=== PATIENT | male | born 1945 | race Caucasian/White ===

== ENCOUNTER → 2019-03-23 15:24 | Day surgery (SDC) | payer MEDICARE, SELFPAY ==
[2019-03-18 12:53] VITALS: BMI 40.4
--- NOTE | ~2019-03-23 | CT_ITS ---
EXAMINATION: CT chest abdomen w con DATE: 03/23/2019 09:47 INDICATION: Dysphagia. Difficulty swallowing. Weight loss. TECHNIQUE: Computed tomography (CT) of the chest and abdomen was performed with 100 cc Omnipaque 350 intravenous contrast. Automated exposure control and iterative reconstruction technique were employed . Exam dose: 1531.38 mGy-cm total exam DLP. COMPARISON: None FINDINGS: CHEST CT: The thyroid gland is unremarkable. There is prominent soft tissue thickening of the distal esophagus. There may be a small hiatal hernia . The esophageal thickening may extend into the proximal stomach. Esophageal and/or gastric neoplasm is suspected. There is an approximately 9 mm right distal paraesophageal lymph node. There is an approximately 9.8 mm distal left paraesophageal lymph node. Additional smaller paraesophageal lymph nodes are noted. There is an approximately 2.1 x 3.1 cm right paratracheal necrotic appearing lymph node. Superior mediastinal lymph nodes are noted, the largest approximately 10 x 14.9 mm, situated in the r ight superior mediastinum. Normal heart size. Coronary artery calcifications. No pericardial or pleural effusion. There is a calcified granuloma at the left lung base, left lower lobe. No pulmonary infiltrate or con solidation or pulmonary mass lesion is detected. Mild bilateral gynecomastia. ABDOMEN CT: There is mild perihepatic and right paracolic gutter ascites There is prominent upper abdominal lymphadenopathy along the proximal lesser curvature of the stomach and periaortic and more prominent aortocaval lymphadenopathy, with aortocaval lymph nodes measuring up to 16.5 x 27.7 mm and periaortic nodes measuring up to 10.5 x 25.6 mm. There is a 2.3 cm right adrenal mass. Normal left adrenal gland. There is very high density bile and/or stones in the gallbladder; consider gallbladder ultrasound cor relation. No bile duct or pancreatic duct dilatation. There is surface nodularity of the liver suggesting cirrhosis. No hepatic space-occupying mass lesion is evident. Normal splenic size. There is a solitary calcification of the proximal body of the pancreas, possibly mild chronic pancrea titis. No pancreatic mass lesion is evident. Bilateral small probable renal cysts. No renal calculus or hydroureteronephrosis. There is mild atherosclerotic calcification but no aneurysm of the abdominal aorta. Diffuse idiopathic skeletal hyperostosis of the thoracic spine. Transitional lumbosacral vertebra. Multilevel degenerative disc disease and prominent degenerative ch eric at the apophyseal joints of the lumbar spine. 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 Reviewed, dictated and finalized at [facility]. 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
[2019-03-23] MEDS: LACTATED RINGERS 1,000 ML 150 ML IV CONT (08:15)
[2019-03-23 08:29] LABS: Glucose Point of Care 167 (65-105)
--- NOTE | 2019-03-23 08:33 | ECG_ITS ---
Measurements Intervals [place] Rate: 102 P: OR: 0 QRS: -53 QRSD: 109 T: 60 QT: 341 QTc: 446 Interpretive Statements ATRIAL FIBRILLATION WITH RAPID VENTRICULAR RESPONSE INCOMPLETE RIGHT BUNDLE BRANCH BLOCK LEFT ANTERIOR FASCICULAR BLOCK INFERIOR INFARCT, AGE INDETERMINATE BORDERLINE ST-T WAVE ABNORMALITY- LATERAL LEADS BASELINE ARTIFACT- I, II, AVR, AVL, AVF ABNORMAL ECG Electronically Signed On 03-23-2019 8:49:07 BE[employer] FORMING MACHINE SET UP OPERATOR by Raymundo Lynne D.O.
--- NOTE | 2019-03-23 08:41 | SUR.PREOP ---
PT presents with new onset Atrial Fibrillation. Heart rate 110-140 on monitor. EKG obtained. Procedure cancelled per Dr. Gracia anesthesiology. Pt to make appointment with primary care physician.
[2019-03-23 08:48] VITALS: BP 158/93; PULSE 102; RESP 20; TEMP 36; O2SAT 100; BMI 39.6
--- NOTE | 2019-03-23 08:57 | SUR.PREOP ---
appointent made with PCP Dr. Shelton Mcwilliams at 1415.
--- NOTE | 2019-03-23 09:07 | SUR.PREOP ---
DR REILLY IN TO SPEAK TO PT AND SON. OUTPATIENT CT SCAN ORDERED.
--- NOTE | 2019-03-23 09:30 | SUR.PREOP ---
PT SENT TO CT SCAN
[2019-03-23 09:36] LABS: Blood Urea Nitrogen 13 mg/dL (8-26); Estimated CRCL calculation 84 ml/min; Estimated Glomerular Filt Rate > 60
== END ==
PROVIDERS: PCP Internal Medicine; Visit Provider Internal Medicine Gastroenterology
PROC: 0DJ08ZZ Inspection of Upper Intestinal Tract, Via Natural or Artificial Opening Endoscopic (ICD-10-PCS; CPT 43235; principal; 2019-03-23 09:00)
DX: R13.10 Dysphagia, unspecified (principal); R63.4 Abnormal weight loss; I48.91 Unspecified atrial fibrillation; Z53.09 Procedure and treatment not carried out because of other contraindication; E27.9 Disorder of adrenal gland, unspecified; K86.1 Other chronic pancreatitis
CPT/HCPCS: 71260; 74160; 93005; 99214; G0463; J7120; Q9967

== ENCOUNTER 2019-04-21 11:40 | Outpatient (CLI) | payer MEDICARE, SELFPAY ==
--- NOTE | ~2019-04-21 | XR_ITS ---
MODIFIED ESOPHAGRAM HISTORY: Dysphagia. TECHNIQUE: Modified barium esophagram was performed on 04/21/2019. I administered fluoroscopy and perfo rmed the exam with speech pathologist. Patient was seated for lateral fluoroscopic imaging for inges tion of thin liquids and pudding in quantified amounts, followed by thin liquids an uncontrolled amou nts. This was recorded on tape. A single fluoroscopic spot image was also recorded. The DAP for this procedure was 1.442 Gycm2. The amount of fluoroscopy time used during this procedure was 1.3 minutes. FINDINGS: Oral stage: Adequate function. Pharyngeal stage: Adequate function. Cervical/esophageal stage: Adequate function. IMPRESSION: Patient tolerated thin liquid and pudding consistency oral feedings in the upright positi on. Please correlate with speech pathologist findings and specific feeding recommendations. Reviewed, dictated and finalized at [facility]. SERVICE TECHNICIAN IMPRESSION: Patient tolerated thin liquid and pudding consistency oral feedings in the upright position. Please correlate with speech pathologist findings an d specific feeding recommendations.
--- NOTE | 2019-04-21 13:20 | STOPEVAL ---
Thank you for referring this patient to [facility]. Please review, sign, date and return this plan of care ZAHEER. I agree with and certify that the following plan of care is medically necessary. Referring Physician Date Admitting Provider: Attending Provider: PHYSICIAN NOT ON STAFF Referring Provider: SOFI Outpatient Evaluation Start: 04/21/19 12:58 Freq: Status: Active Protocol: Document 04/21/19 12:58 BAS (Rec: 04/21/19 13:19 BAS [id number]) Therapy Assessment Status Assessment Status Assessment Status Evaluation Outpatient Past Medical History Neurological History Hx Neurological Disorders No Significant History Cardiovascular History Hx Cardiac Disorders No Significant History Respiratory History Hx Respiratory Disorders No Significant History Gastrointestinal History Hx Esophageal Disorders Yes Hx Other Gastrointestinal Disorders Yes: family hx of colon cancer ;dysphagia for 7 months 02/2019 Genitourinary History Hx Genitourinary Disorders No Significant History Musculoskeletal History Hx Other Musculoskeletal Disorders Yes: pilonidal cyst 1970's Hematological History Hx Hematological Disorders No Significant History Endocrine History Hx Diabetes Yes HEENT History Hx Tonsillectomy Yes Integumentary History Hx Skin Disorders No Significant History Reproductive History Hx Reproductive Disorders No Significant History Psychosocial History Hx Psychiatric Disorders No Significant History Pain History History of Any Previous or Ongoing No Significant History Instance of Pain Anesthesia History Hx Anesthesia Reactions No Significant History Other History Hx Cancer Yes: Esophageal Cancer; lymph node related Evaluation Information Problem Diagnosis Dysphagia Onset May, Cause Esophageal Cancer Additional Evaluation Detail Reports around May of last year, he began having difficulty swallowing, however he reports initially, he thought is was difficulty swallowing however as his disease progressed, he began to realize that he was having difficulty moving water and other liquids past the tumor. He stated that at the moment, he cannot even attempt to swallow solids because he would have to swallow hard
== END 2019-04-21 11:41 | disposition home or self-care (01) ==
PROVIDERS: PCP Internal Medicine
DX: C15.5 Malignant neoplasm of lower third of esophagus (principal); C77.2 Secondary and unspecified malignant neoplasm of intra-abdominal lymph nodes
CPT/HCPCS: 92611